=== PATIENT | female | born 1955 | race Caucasian/White ===

== ENCOUNTER 2021-08-01 20:09 | Emergency (ER) | payer MEDICARE, OTHER, SELFPAY ==
--- NOTE | ~2021-08-01 | CT_ITS ---
EXAMINATION: CT abdomen pelvis w con DATE: 08/01/2021 22:35 INDICATION: Abdominal pain. TECHNIQUE: Computed tomography (CT) of the abdomen and pelvis was performed with 100 mL Omnipaque 350 intravenous contrast. Automated exposure control and iterative reconstruction technique were employe d. The dose-length product was 635.02 mGy-cm. COMPARISON: None. FINDINGS: The visualized portions of the lung bases demonstrate mild atelectasis. No pleural effusion . The heart size is normal. No pericardial effusion. There is a small sliding hiatal hernia. The live r and spleen are normal. There are changes of cholecystectomy. The pancreas, adrenal glands, and kidn eys are normal. There is diverticulosis of the colon without evidence of diverticulitis. The appendix is normal. There are no dilated loops of bowel. There are no pathologically enlarged lymph nodes. Th ere is no free intraperitoneal fluid. There is moderate lumbar spondylosis and mild thoracic spondylo sis. IMPRESSION: 1. Small sliding hiatal hernia. Reviewed, dictated and finalized at location A.
[2021-08-01 20:45] VITALS: BP 145/71; PULSE 72; RESP 22; TEMP 36.6; O2SAT 100
[2021-08-01 21:39] LABS: Basophils Percent Auto 0.4 % (0.2-1.2); Eosinophils Absolute Auto 0.3 K/mm3 (0-0.3); Eosinophils Percent Auto 2.6 % (0-4.4); Hematocrit 38.2 % (37.0-47.0); Hemoglobin 13.3 g/dL (12.0-15.0); Immature Granulocyte Absolute 0.03 K/mm3 (0.00-0.031); Immature Granulocyte Percent A 0.3 % (0-0.5); Lymphocytes Absolute Auto 2.68 K/mm3 (0.9-3.2); Lymphocytes Percent Auto 25.9 % (18.3-44.2); Mean Corpuscular HGB Conc 34.8 g/dl (32-36); Mean Corpuscular Hemoglobin 31.7 pg (26-34); Monocytes Absolute Auto 0.8 K/mm3 (0.1-0.6); Monocytes Percent Auto 8.1 % (2.6-8.5); Neutrophils Absolute Auto 6.5 K/mm3 (1.3-6.7); Neutrophils Percent Auto 62.7 % (45.5-73.1); Platelet Count Result 217 k/mm3 (150-375); Red Cell Distribution Width 12.4 % (11.5-14.5); White Blood Count 10.4 K/mm3 (4.5-10.0)
[2021-08-01] MEDS: ONDANSETRON INJ 4 MG/2 ML VIAL IV PUSH (21:43)
[2021-08-01] MEDS: MORPHINE SULFATE (*CRX) 4 MG/ML INJ IV PUSH (21:44)
[2021-08-01] MEDS: SODIUM CHLORIDE 0.9% IV 1,000 ML 999 ML IV CONT (21:44)
[2021-08-01 21:46] VITALS: BP 118/51; PULSE 70; RESP 20; O2SAT 100
[2021-08-01 21:48] LABS: Alanine Aminotransferase 21 U/L (4-35); Albumin Level 4.4 g/dL (3.5-5.1); Alkaline Phosphatase 55 U/L (38-126); Anion Gap 7 mmol/L (8-16); Aspartate Amino Transferase 30 U/L (14-36); Bilirubin,Total 0.4 mg/dL (0.2-1.3); Blood Urea Nitrogen 15 mg/dL (7-17); Calcium 9.6 mg/dL (8.4-10.2); Carbon Dioxide 28 mmol/L (22-30); Chloride 99 mmol/L (98-107); Estimated CRCL calculation 53 ml/min; Estimated Glomerular Filt Rate > 60; Glucose 110 mg/dL (65-110); Lipase 53 U/L (23-300); Potassium 3.4 mmol/L (3.4-5.0); Sodium 134 mmol/L (137-145)
[2021-08-01 23:23] VITALS: BP 114/54; PULSE 70; RESP 18; O2SAT 99
--- NOTE | 2021-08-02 00:08 | ED.GENADULT ---
HPI - General Adult General Chief complaint: Back Pain/Injury Stated complaint: back pain Time Seen by Provider: 08/01/21 21:10 Source: RN notes reviewed History of Present Illness HPI narrative: Patient presents emergency department from home for pain in the left hip. Patient states pain is located in the left buttocks posterior hip region and radiates into the lower back and into the left lower abdomen pain is described as aching and burning in nature. Patient states she has had the pain intermittently over the past month but became worse over the past several days she denies any direct trauma or injury to the back or abdomen she denies any fevers or chills nausea, vomiting, diarrhea dysuria, bladder incontinence or any other symptoms she denies any pain radiating down the leg or any numbness or tingling of the extremities Related Data Allergies Allergy/AdvReac Type Severity Reaction Status Date / Time No Known Allergies Allergy Mild Unverified 12/08/03 09:39 Review of Systems Review of Systems: Gen.: Denies fevers or chills ENT: Denies congestion Respiratory: Denies shortness of breath or cough CV: Denies chest pain or palpitations GI: Reports left lower abdominal pain denies nausea vomiting or diarrhea denies burning, urgency, frequency or hematuria denies bladder incontinence Musculoskeletal: See HPI Neuro: Denies numbness, tingling, weakness or focal weakness Skin: Denies rash Except as documented, all other systems reviewed and negative [facility] Past Medical History Medical History (Updated 08/02/21 @ 00:38 by Narinder Kent DO) Hypertension Social History Social History (Updated 08/02/21 @ 00:10 by Narinder Kent DO) Smoking status: Never smoker Exam Narrative: APPEARANCE: No acute distress, nontoxic, resting in bed HEENT: Normocephalic, atraumatic, OMM RESPIRATORY: No respiratory distress, clear to auscultation bilaterally with no rhonchi wheezing or rales CARDIOVASCULAR: RRR s murmur ABDOMINAL: Soft nondistended tender palpation left lower quadrant no tenderness left upper quadrant, right lower quadrant right upper quadrant no rebound or guarding Back: No midline thoracic lumbar tenderness palpation 10 palpation over left piriformis region MUSCULOSKELETAl: Moves all extremities. No clubbing, cyanosis or edema. No tenderness of the left lateral or anterior hip pain left hip with flexion of the hip greater than 45 degrees no tenderness of the left knee or ankle dorsalis pedis pulse 2+ neurovascular intact NEURO: Awake and alert. Following commands, speech normal, no focal deficits SKIN:: Warm, dry. Normal Color PSYCHIATRIC: Normal affect/mood Course Course Emergency Course: Patient states pain is improved at this time Discussed with patient results of workup and diagnosis. Discussed need for follow-up with primary care, proper use of medication, and reasons to return to the emergency department. Patient understands and agrees to current treatment plan Vital Signs Vital signs: Vital Signs Temperature 97.8 F 08/01/21 20:45 Pulse Rate 72 08/01/21 20:45 Respiratory Rate 22 H 08/01/21 20:45 Blood Pressure 145/71 H 08/01/21 20:45 Pulse Oximetry 100 08/01/21 20:45 Temperature 97.8 F 08/01/21 20:45 Pulse Rate 66 08/02/21 00:13 Respiratory Rate 20 08/02/21 00:13 Blood Pressure 132/67 08/02/21 00:13 Pulse Oximetry 99 08/02/21 00:13 Medical Decision Making [facility] Narrative Medical decision making narrative: Patient?s pain is positional and localized to back without signs of cord compression or cauda equina. Normal nuerologic exams. No fever noted and no significant risk factors for osteomyelitis or spinal epidural abscess. No symptoms or signs to suggest pain is referred from abdominal or source. There are no pulsatile masses to exam. Patient ambulates with a steady gait and is felt to be up reasonable candidate for continued outpatient management Vital Signs Vital Signs
[2021-08-02 00:13] VITALS: BP 132/67; PULSE 66; RESP 20; O2SAT 99
[2021-08-02] MEDS: KETOROLAC 30 MG/ML VIAL (*BKC) IV PUSH (00:14)
[2021-08-02 00:30] LABS: Add Urine Microscopic? NO; Appearance Urine Clear (Clear); Bilirubin Urine Negative (Negative); Blood Urine Negative (Negative); Color Urine Colorless (Yellow); Glucose Urine UA Negative (Negative); Ketones Urine Negative (Negative); Leukocyte Esterase Ur Negative LEU/UL (Negative); Nitrate Urine Negative (Negative); Protein Urine Negative (Negative); Urobilinogen Urine Negative mg/dL (<2.0)
== END 2021-08-02 00:55 | disposition home or self-care (01) ==
PROVIDERS: Emergency Provider Emergency Medicine; PCP Family Medicine
DX: M54.30 Sciatica, unspecified side (principal); I10 Essential (primary) hypertension
CPT/HCPCS: 36415; 74177; 80053; 81003; 83690; 85025; 96361; 96374; 96375; 99284; J1885; J2270; J2405; J7030; Q9967

== ENCOUNTER 2021-08-07 10:21 | Outpatient (CLI) | payer MEDICARE, OTHER, SELFPAY ==
--- NOTE | ~2021-08-07 | MR_ITS ---
EXAMINATION: MR lumbar spine wo con DATE: 08/07/2021 11:01 INDICATION: Other spondylosis with radiculopathy. TECHNIQUE: Magnetic resonance imaging (MRI) of the lumbar spine was performed without intravenous con trast. Sequences included sagittal T2-weighted FSE, sagittal T2-weighted FS FSE, sagittal T1-weighted FSE, and axial T2-weighted FSE. COMPARISON: None FINDINGS: There is 6 degrees levocurvature of lumbar spine. Vertebral body heights are normal. There is moderately decreased disc height at L2-L3 and L3-L4 and mildly decreased disc height at L4-L5. The distal spinal cord signal intensity is normal. The conus medullaris is at L1-L2. The following disc levels are specifically discussed: L1-L2: The disc does not extend beyond the endplate margin. There is mild left facet joint osteoarthr itis. There is mild left neural foraminal stenosis. There is no central canal stenosis. L2-L3: The disc is bulging and has an annular fissure. There is mild bilateral facet joint osteoarthr itis. There is mild bilateral neural foraminal stenosis. There is mild central canal stenosis. L3-L4: The disc is bulging. There is mild bilateral facet joint osteoarthritis. There is mild bilater al neural foraminal stenosis. There is mild central canal stenosis. L4-L5: The disc is bulging and has an annular fissure. There is moderate bilateral facet joint osteoa rthritis. There is mild bilateral neural foraminal stenosis. There is mild central canal stenosis. L5-S1: The disc does not extend beyond the endplate margin. There is severe bilateral facet joint ost eoarthritis. There is mild bilateral neural foraminal stenosis. There is no central canal stenosis. IMPRESSION: 1. Moderate lumbar spondylosis. Reviewed, dictated and finalized at location A.
== END 2021-08-07 10:22 | disposition home or self-care (01) ==
PROVIDERS: PCP Family Medicine; Visit Provider Family Medicine
DX: M47.26 Other spondylosis with radiculopathy, lumbar region (principal)
CPT/HCPCS: 72148

== ENCOUNTER 2021-12-08 08:16 | Outpatient (CLI) | payer MEDICARE, OTHER, SELFPAY ==
--- NOTE | ~2021-12-08 | MM_ITS ---
EXAMINATION: MM screening toni BI w latonya HISTORY: Screening TECHNIQUE: Craniocaudal and mediolateral oblique 3-D tomosynthesis images were obtained and synthetic 2-D images were generated. CAD analysis was submitted and interpreted. COMPARISON: 10/18/2016 BREAST PARENCHYMAL COMPOSITION: There are scattered areas of fibroglandular density. FINDINGS: There is no evidence of suspicious mass, calcification, or architectural distortion to sugg est malignancy in either breast. There has been no suspicious interval change. IMPRESSION: 1. No mammographic evidence of malignancy. 2. Recommend routine screening mammography in one year. BI-RADS Category 1: Negative Reviewed, dictated and finalized at location A. [employer]
== END 2021-12-08 08:17 | disposition home or self-care (01) ==
PROVIDERS: PCP Family Medicine; Visit Provider Nurse Practitioner Obstetrics & Gynecology
DX: Z12.31 Encounter for screening mammogram for malignant neoplasm of breast (principal)
CPT/HCPCS: 77063; 77067

== ENCOUNTER 2023-05-21 07:55 | Outpatient (CLI) | payer MEDICARE, OTHER, SELFPAY ==
[2023-05-21 08:44] LABS: Anion Gap 3 mmol/L (8-16); Blood Urea Nitrogen 18 mg/dL (7-17); Carbon Dioxide 32 mmol/L (22-30); Chloride 102 mmol/L (98-107); Estimated Glomerular Filt Rate 55; Glucose 113 mg/dL (65-110); Potassium 4.1 mmol/L (3.4-5.0); Sodium 137 mmol/L (137-145)
== END 2023-05-21 07:56 | disposition home or self-care (01) ==
LOC: ANHSURGERY 08:00
PROVIDERS: Anesthesiology; PCP Family Medicine; Visit Provider Obstetrics & Gynecology
DX: N95.0 Postmenopausal bleeding (principal); Z01.818 Encounter for other preprocedural examination
CPT/HCPCS: 36415; 80048

== ENCOUNTER 2023-05-23 00:28 | Day surgery (SDC) | payer MEDICARE, OTHER, SELFPAY ==
[2023-05-17 12:27] VITALS: BMI 34.0
--- NOTE | 2023-05-17 12:38 | PC.NURSE ---
PRE-OP INSTRUCTIONS, PLEASE READ CAREFULLY Report to the Outpatient Waiting Room, entrance under the green pavilion located off [facility], at time _0630_ on date _05/23/23_. Planned Procedure Time: _0830_. MAY HAVE 2 VISITORS Time changes happen often and if your time is changed the preop area will call you the afternoon before. - You and your visitor will be asked to self-screen and do not enter if you have any COVID symptoms. - A mask is optional within the hospital at this time. Patients may have clear liquids (water, carbonated beverages, clear teas, apple juice) until 3 hours prior to surgery with a maximum of 20 ounces. - No food from midnight until time of surgery Take the following medications with a SIP of water the morning of surgery: _METOPROLOL_ DO NOT STOP ANY OF YOUR OTHER PRESCRIPTION MEDICATIONS PRIOR TO SURGERY ?EXCEPT THE FOLLOWING Medications to discontinue per ANESTHESIA - _FISH OIL, TURMERIC ROOT 3 DAYS PRIOR TO SURGERY, Date to take last dose 05/19/23_ Please no make-up, nail thai, hairspray, perfume, deodorant, or body powder the day of surgery. No jewelry (including any body piercings) or valuables the day of surgery, leave them at home. Please take a shower or bath the night before, or the morning of, surgery with an antibacterial soap. Wear comfortable, loose fitting clothing. - Jewelry must be removed prior to entering the operating room. Rings and piercings that are not removed may be cut off. - The hospital will not accept responsibility for valuables. - Please leave all valuables, including medications, at home the day of surgery. If you are going home after surgery, a licensed warehouse associate driver must drive you home. - NO public transportation without another adult if you receive anesthesia. - We recommend that an adult stay with you for 24 hours following discharge. - We also recommend that you do not drive, make important decision, drink alcoholic beverages, or take any drugs that were not prescribed by your health care provider for at least 24 hours after your discharge time. Follow any additional instructions given to you from your surgeon. If you or anyone in your household have experienced Covid symptoms in the past week, please notify your surgeon or the nurse liaison at the phone number below for possible testing. Telephone instructions given to _PATIENT_and asked if any additional questions and then verbalized understanding. Patient advised to call surgeon office or pre surgery nurse liaison [phone] if any additional questions.
--- NOTE | 2023-05-22 14:11 | P.PNAN_ITS ---
Anes - Initial Pre Proc Eval Procedure: Operation Date: 05/23/23 08:30 Proposed Procedures p Hysteroscopy Dilation and Curettage - Yury Silvestre MD Date/Time: 05/22/23 14:11 Surgeon: Yury Silvestre MD Pre Op Diagnosis: post menopausal bleeding Patient Data Age: 67 Gender: F Height: 1.55 m Weight: 81.81 kg Allergies Allergy/AdvReac Type Severity Reaction Status Date / Time No Known Allergies Allergy Mild Verified 05/23/23 06:34 Home Medications Medication Instructions Recorded Confirmed Type atorvastatin 10 mg tablet 10 mg PO DAILY #90 tabs 03/23/23 05/17/23 Rx gabapentin 300 mg capsule 300 mg PO QHS #90 caps 03/23/23 05/17/23 Rx hydrochlorothiazide 25 mg tablet 25 mg PO DAILY #90 tabs 03/23/23 05/17/23 Rx metoprolol succinate 50 mg 50 mg PO DAILY #90 tabs 03/23/23 05/17/23 Rx tablet,extended release 24 hr omega 1-tkd-axt-fish oil 100 2 cap PO DAILY 03/23/23 05/17/23 History mg-160 mg-1,000 mg capsule (Fish Oil) turmeric root extract 500 mg 500 mg PO DAILY 03/23/23 05/17/23 History capsule Patient hx anesthesia problems: none Family hx anesthesia problems: none Results Review: All pre-operative results and documents have been reviewed as part of the pre- operative evaluation. [facility] Past Medical History Medical History (Updated 03/23/23 @ 14:58 by Duarte Medina MD) Hypertension Insomnia, unspecified Pure hypercholesterolemia, unspecified Surgical History Surgical History (Updated 05/22/23 @ 14:11 by Willi Doss DO) History of tonsillectomy Social History Social History (Updated 03/23/23 @ 10:09 by CARLITOS Morales) Smoking status: Never smoker Second hand tobacco smoke exposure: No Alcohol intake: never Substance use: never Substance use type: does not use Lack of Transportation: No Lack of Food: Never True Current Housing: I Have Housing Concerned About Future Housing: No Difficulty Paying Gas/Electric Bills: No Difficulty Paying for Meds: No Currently Unemployed: No Education: Associate Degree Difficulty w/ Childcare or Family Care: No Living arrangements: with family Spiritual care concerns: No Anes - Eval Final PreProcedure Day of Procedure 05/22/23 14:11 Patient weight: obese Heart: regular rate and rhythm Lungs: clear to auscultation Airway: Mallampati scale class II Neurological: alert and oriented Last oral intake: >/= 8 hours ASA classification: III Emergent: no Anesthetic plan: proceed Anesthesia type and monitoring: general GIVS and standard monitoring Results Review: All pre-operative results and documents have been reviewed as part of the pre- operative evaluation. Informed Consent: The patient's anesthetic plan and its attendant risks and benefits were discussed with the patient/family/POA. Questions were solicited and answers provided to the satisfaction of the patient/family/POA.
[2023-05-23] MEDS: ACETAMINOPHEN 500 MG TABLET 1000 MG PO (06:53)
[2023-05-23] MEDS: LACTATED RINGERS 1,000 ML 30 ML IV CONT (07:06)
[2023-05-23 07:10] VITALS: BP 121/62; PULSE 50; RESP 16; TEMP 36.2; O2SAT 99
--- NOTE | 2023-05-23 07:19 | WPDHPUPDATE1 ---
History and Physical Update Update Date/Time: 05/23/23 07:19 History and Physical has been reviewed, including an updated exam of the patient. There are NO changes in the patient's condition. Risks, benefits, and alternatives have been discussed and questions answered. Patient agrees to proceed with procedure.
--- NOTE | 2023-05-23 08:48 | W.PM.PROC2 ---
Procedure Note - Detailed Date of Procedure 05/23/23 Pre-op Diagnosis post menopausal bleeding Post-op Diagnosis Same Procedure Performed Hysteroscopy D&C Surgeon Yury Silvestre MD Anesthesia MAC Indications abnormal uterine bleeding Findings Normal vulva, vagina, cervix. Endometrial polyp, possibly 3 cm in length, otherwise normal endometrium Description of Procedure the patient was taken the operating room. She was prepped and draped in the dorsal lithotomy position after induction of mac anesthesia. A speculum was placed in the vagina. The cervix was grasped with a tenaculum. The cervix was dilated about 1 cm. The hysteroscope was inserted. The intrauterine cavity and endocervix were evaluated. Hysteroscope was withdrawn. A medium-size curette was used to curettage all the surfaces were within the endometrial cavity. the sample was collected on Telfa and sent to pathology. The hysteroscope was reinserted and the above findings were noted. Patient tolerated the procedure well. The speculum and tenaculum were removed. She was taken recovery room in stable condition. Sponge lap and needle counts were correct x2. Estimated Blood Loss 40 Drains No Packing No Pathology Yes Complications No immediate complications Condition Stable Disposition PACU
[2023-05-23 08:50] VITALS: BP 125/49; PULSE 62; RESP 12; O2SAT 95
[2023-05-23 09:15] VITALS: BP 112/94; PULSE 101; RESP 20
[2023-05-23 09:30] VITALS: BP 126/68; PULSE 49; RESP 16
[2023-05-23 09:45] VITALS: BP 141/63; PULSE 48; RESP 16
[2023-05-23 09:49] LABS: Glucose Point of Care 93 mg/dl (65-105)
--- NOTE | 2023-05-23 09:55 | SUR.PHASEII ---
0855 pt lying on stretcher is drowsy but responsive, constantly moving legs. 0900 pt has the urge to void, taken to bathroom on stretcher, bin and i walked her to toilet, patient did ok with assistance. Bin stayed with her in bathroom, patient unable to void. patient taken back to room in wheelchair. 0910 spouse called me into room due to patient having constant movement of arms/legs, patient answering questions, vital sign s stable on room air. i had sabrina call dr wadsworth to come to room. pt had strong machine staker, symmetrical smile, tongue symmetrical. patient states she has this off feeling, dizziness. fluids hooked back up, dr wadsworth is going to check her meds for possible reaction with propofol. 0930 pt resting easier, movements have slowed. [address] wadsworth if he wants a blood glucose, he says yes. [id number]. pt still feels off 0950 dr wadsworth and amrit(paula) at bedside disussing with patient/spouse about what is possibly causing this clomi tonic movements of arms/legs 0955 dr wadsworth is okay with patient to be discharged, he believes the propofol has worked its course and patient shouldn't have any other problems
[2023-05-23 10:15] VITALS: BP 147/65; PULSE 51; RESP 16
== END 2023-05-23 10:45 | disposition home or self-care (01) ==
PROVIDERS: PCP Family Medicine; Visit Provider Obstetrics & Gynecology
PROC: 0U5B8ZZ Destruction of Endometrium, Via Natural or Artificial Opening Endoscopic (ICD-10-PCS; CPT 58563; principal; 2023-05-23 08:30)
DX: N95.0 Postmenopausal bleeding (principal); N84.0 Polyp of corpus uteri; I10 Essential (primary) hypertension; E78.00 Pure hypercholesterolemia, unspecified; E66.9 Obesity, unspecified; Z68.33 Body mass index [BMI] 33.0-33.9, adult
CPT/HCPCS: 58558; 82948; 88305; A9270; J2704; J7120

== ENCOUNTER 2024-03-28 06:50 | Outpatient (CLI) | payer MEDICARE, OTHER, SELFPAY ==
[2024-03-28 07:37] LABS: Alanine Aminotransferase 16 U/L (6-35); Albumin Level 4.1 g/dL (3.5-5.1); Alkaline Phosphatase 48 U/L (38-126); Anion Gap 3 mmol/L (4-12); Aspartate Amino Transferase 23 U/L (14-36); Bilirubin,Total 0.7 mg/dL (0.2-1.3); Blood Urea Nitrogen 21 mg/dL (7-17); Calcium 9.4 mg/dL (8.4-10.2); Carbon Dioxide 29 mmol/L (22-30); Chloride 105 mmol/L (98-107); Cholesterol 148 mg/dL (0-200); Estimated Glomerular Filt Rate > 60; Glucose 108 mg/dL (65-110); HDL Direct 56 mg/dL; Potassium 3.7 mmol/L (3.4-5.0); Sodium 137 mmol/L (137-145); Triglycerides 114 mg/dL (<150)
[2024-03-28 07:54] LABS: LDL Cholesterol Direct 71 mg/dL
== END 2024-03-28 06:51 | disposition home or self-care (01) ==
PROVIDERS: PCP Family Medicine; Visit Provider Family Medicine
DX: E78.00 Pure hypercholesterolemia, unspecified (principal); I10 Essential (primary) hypertension
CPT/HCPCS: 36415; 80053; 80061

== ENCOUNTER 2024-07-11 07:34 | Emergency (ER) | payer MEDICARE, OTHER, SELFPAY ==
[2024-07-11] VITALS (12 sets, daily range): BP systolic 111–153; BP diastolic 54–73; PULSE 56–77; RESP 16–20; TEMP 36.5; O2SAT 94–100
--- NOTE | 2024-07-11 09:53 | ED.BACK ---
HPI - Back Pain/Injury General Chief Complaint: Back Pain/Injury Stated Complaint: back pain Time Seen by Provider: 07/11/24 08:27 History of Present Illness HPI Narrative: This is a 68-year-old female with a past medical history significant for sciatica who presents to the emergency department with left lower back, posterior thigh pain. She states it feels exactly like last time she had sciatica 3 years prior. She previously underwent MRI imaging and physical therapy outpatient which helped her sciatic pain. She was doing heavy boxes at work last week and noticed significant pain shoot down the left leg she described as a burning sensation consistent with her sciatica. Pain came and went but over last few days got acutely worse. She states that is now impairing her ability walk as she is so much pain. No recent new medications aside from being given Flexeril by her primary care provider which did not alleviate the symptoms. No urinary incontinence or fecal incontinence, no saddle anesthesias, no trauma or injuries, car accidents or falls. No fever, chills or any other complaints. She was otherwise in her normal state of health. Denies any chest pain, abdominal pain, upper back pain, difficulty urinating, burning with urination. Related Data Home Medications Medication Instructions Recorded Confirmed omega 8-xbx-zka-fish oil 100 2 cap PO DAILY 03/23/23 04/01/24 mg-160 mg-1,000 mg capsule (Fish Oil) turmeric root extract 500 mg 500 mg PO DAILY 03/23/23 04/01/24 capsule Allergies Allergy/AdvReac Type Severity Reaction Status Date / Time No Known Allergies Allergy Mild Verified 07/11/24 07:47 Review of Systems Review of Systems: As reviewed above in HPI [facility] Past Medical History Medical History Abnormal glucose Hypertension Insomnia, unspecified Pure hypercholesterolemia, unspecified Surgical History Surgical History History of tonsillectomy Social History Social History Smoking status: Never smoker Second hand tobacco smoke exposure: No Alcohol intake: never Drinks per week: 0 Substance use: never Substance use type: does not use Lack of Transportation: No Lack of Food: Never True Current Housing: I Have Housing Concerned About Future Housing: No Difficulty Paying Gas/Electric Bills: No Difficulty Paying for Meds: No Currently Unemployed: No Education: Associate Degree Difficulty w/ Childcare or Family Care: No Living arrangements: with family Spiritual care concerns: No Exam Narrative: GENERAL: Patient appears acutely in pain but not in any distress and able to answer questions appropriately HEAD: [Normocephalic, atraumatic.] EYES: [PERRLA and EOMI.] ENT: Nares clear, no rhinorrhea or epistaxis. Mucous membranes moist. NECK: Supple. CHEST: [Clear to auscultation. No respiratory distress.] HEART: [Regular rate and rhythm]. No murmur heard. [Normal peripheral pulses.] ABDOMEN: [Soft, nondistended], [nontender], [No rigidity or guarding] EXTREMITIES: Normal range of motion. [No edema.] Significant tenderness in the posterior left buttock radiating down her left thigh. Left paraspinal muscle tenderness without any involvement of the lumbar or thoracic midline. No step-offs or deformities. Full EHL and FHL strength 5/5 able to flex and extend at the knee and hip albeit with some pain with left hip flexion. SKIN: Warm, dry, no rash. NEURO: [No focal deficits]. Alert and oriented [x3.] No saddle anesthesias, full strength and sensation throughout both lower extremities, both upper extremities. PSYCH: [Normal mood and affect.] Course Vital Signs Vital signs: Vital Signs Temperature 36.5 C 07/11/24 07:44 Pulse Rate 56 L 07/11/24 07:44 Respiratory Rate 2
[2024-07-11] MEDS: ONDANSETRON INJ 4 MG/2 ML VIAL IV PUSH (10:08)
[2024-07-11] MEDS: LACTATED RINGERS 1,000 ML 999 ML IV CONT (10:09)
[2024-07-11 10:12] LABS: Basophils Percent Auto 0.2 % (0.2-1.2); Hematocrit 43.2 % (37.0-47.0); Hemoglobin 15.1 g/dL (12.0-15.0); Immature Granulocyte Absolute 0.02 K/mm3 (0.00-0.031); Immature Granulocyte Percent A 0.2 % (0-0.5); Lymphocytes Absolute Auto 1.36 K/mm3 (0.9-3.2); Mean Corpuscular Hemoglobin 31.6 pg (26-34); Mean Corpuscular Volume 90.4 fl (80-100); Mean Platelet Volume 9.3 fl (7.4-10.4); Monocytes Absolute Auto 0.4 K/mm3 (0.1-0.6); Monocytes Percent Auto 4.5 % (2.6-8.5); Neutrophils Absolute Auto 6.7 K/mm3 (1.3-6.7); Neutrophils Percent Auto 79.1 % (45.5-73.1); Platelet Count Result 244 k/mm3 (150-375); Red Blood Count 4.78 M/mm3 (4.2-5.4); Red Cell Distribution Width 12.6 % (11.5-14.5); White Blood Count 8.5 K/mm3 (4.5-10.0)
[2024-07-11] MEDS: HYDROmorphone HCL INJ (*CRX) 1 MG/ML SYR IV PUSH (10:13)
[2024-07-11] MEDS: dexAMETHasone SOD PHOS INJ 10 MG/ML 1 ML VIAL IV PUSH (10:13)
[2024-07-11] MEDS: LIDOCAINE 5% PATCH 1 PATCH TRANSDERM (10:15)
[2024-07-11 10:22] LABS: Anion Gap 11 mmol/L (4-12); Blood Urea Nitrogen 13 mg/dL (7-17); Calcium 9.8 mg/dL (8.4-10.2); Carbon Dioxide 23 mmol/L (22-30); Chloride 102 mmol/L (98-107); Estimated CRCL calculation 54 ml/min; Estimated Glomerular Filt Rate > 60; Glucose 119 mg/dL (65-110); Potassium 3.5 mmol/L (3.4-5.0); Sodium 136 mmol/L (137-145)
== END 2024-07-11 13:05 | disposition home or self-care (01) ==
PROVIDERS: Emergency Provider Student in an Organized Health Care Education/Training Program; PCP Family Medicine
DX: M54.42 Lumbago with sciatica, left side (principal); I10 Essential (primary) hypertension; E78.00 Pure hypercholesterolemia, unspecified
CPT/HCPCS: 36415; 80048; 85025; 96361; 96374; 96375; 99284; A9270; J1100; J1170; J2405; J7120

== ENCOUNTER 2024-07-12 20:51 | Emergency (ER) | payer MEDICARE, OTHER, SELFPAY ==
[2024-07-12 20:52] VITALS: BP 147/75; PULSE 90; RESP 20; TEMP 36.6; O2SAT 100
[2024-07-12] MEDS: HYDROmorphone HCL INJ (*CRX) 1 MG/ML SYR IV PUSH (23:25)
[2024-07-12] MEDS: KETOROLAC 15 MG/ML VIAL (*BKC) IV PUSH (23:26)
[2024-07-12] MEDS: dexAMETHasone SOD PHOS INJ 10 MG/ML 1 ML VIAL IV PUSH (23:26)
[2024-07-12 23:49] VITALS: O2SAT 100; O2SAT 77
--- NOTE | 2024-07-13 01:03 | ED.GENADULT ---
HPI - General Adult General Chief complaint: Back Pain/Injury Stated complaint: back pain Time Seen by Provider: 07/12/24 22:56 History of Present Illness HPI narrative: Patient is 68-year-old female who presents emergency department with chief complaint of sciatica. The patient reports that she was seen in the ER given ibuprofen and muscle relaxer and Lidoderm patches. The patient states she has pain that radiates down her left leg patient reports that she has had no bowel or bladder dysfunction denies numbness or tingling denies foot Related Data Home Medications Medication Instructions Recorded Confirmed omega 6-zka-qwp-fish oil 100 2 cap PO DAILY 03/23/23 04/01/24 mg-160 mg-1,000 mg capsule (Fish Oil) turmeric root extract 500 mg 500 mg PO DAILY 03/23/23 04/01/24 capsule Allergies Allergy/AdvReac Type Severity Reaction Status Date / Time No Known Allergies Allergy Mild Verified 07/11/24 07:47 Review of Systems Review of Systems: A 10 system review of systems was completed on the patient and is negative except for what is stated in the HPI. Nursing and ancillary documentation was reviewed. [facility] Past Medical History Medical History Abnormal glucose Hypertension Insomnia, unspecified Pure hypercholesterolemia, unspecified Surgical History Surgical History History of tonsillectomy Social History Social History Smoking status: Never smoker Second hand tobacco smoke exposure: No Alcohol intake: never Drinks per week: 0 Substance use: never Substance use type: does not use Lack of Transportation: No Lack of Food: Never True Current Housing: I Have Housing Concerned About Future Housing: No Difficulty Paying Gas/Electric Bills: No Difficulty Paying for Meds: No Currently Unemployed: No Education: Associate Degree Difficulty w/ Childcare or Family Care: No Living arrangements: with family Spiritual care concerns: No Exam Narrative: GENERAL: Well-appearing, well-nourished, and in moderate acute pain distress. HEAD: Normocephalic, atraumatic. EYES: PERRLA and EOMI. ENT: Nares clear, no rhinorrhea or epistaxis. Mucous membranes moist. NECK: Supple. CHEST: Clear to auscultation. No respiratory distress. HEART: Regular rate and rhythm. No murmur heard. Normal peripheral pulses. ABDOMEN: Soft, nontender, nondistended, normal active bowel sounds. EXTREMITIES: Normal range of motion. No edema. Tenderness along left SI joint the left gluteal area SKIN: Warm, dry, no rash. NEURO: No focal deficits. Alert and oriented x3. PSYCH: Normal mood and affect. Course Vital Signs Vital signs: Vital Signs Temperature 36.6 C 07/12/24 20:52 Pulse Rate 90 07/12/24 20:52 Respiratory Rate 20 07/12/24 20:52 Blood Pressure 147/75 H 07/12/24 20:52 Pulse Oximetry 100 07/12/24 20:52 Oxygen Delivery Room Air 07/12/24 20:52 Temperature 36.6 C 07/12/24 20:52 Pulse Rate 76 07/13/24 02:54 Respiratory Rate 18 07/13/24 02:54 Blood Pressure 125/56 L 07/13/24 02:54 Pulse Oximetry 99 07/13/24 02:54 Oxygen Delivery Nasal Cannula 07/12/24 23:49 Oxygen Flow Rate 2 07/12/24 23:49 Medical Decision Making MDM Narrative Medical decision making narrative: Differential diagnosis includes sciatica, low back pain. Patient shows no focal neurological deficits or signs of acute cauda equina syndrome or infectious process. Patient was given pain control in the emergency department and observed in the emergency department. The patient will be discharged home with additional pain medication should follow-up with her primary care provider for possible physical therapy additional treatment Vital Signs Vital Signs: Vital Signs Temperature 36.6 C
[2024-07-13 02:54] VITALS: BP 125/56; PULSE 76; RESP 18; O2SAT 99
[2024-07-13 03:38] VITALS: BP 138/72; PULSE 61; RESP 16; O2SAT 98
== END 2024-07-13 04:03 | disposition home or self-care (01) ==
PROVIDERS: Emergency Provider Emergency Medicine; PCP Family Medicine
DX: M54.42 Lumbago with sciatica, left side (principal); I10 Essential (primary) hypertension; E78.00 Pure hypercholesterolemia, unspecified; Z79.899 Other long term (current) drug therapy
CPT/HCPCS: 96374; 96375; 99284; J1100; J1170; J1885

== ENCOUNTER 2024-07-15 10:02 | Outpatient (CLI) | payer MEDICARE, OTHER, SELFPAY ==
--- NOTE | ~2024-07-15 | XR_ITS ---
3 VIEWS LUMBAR SPINE Ordering provider: Duarte Medina MD History: . M54.30 - Sciatica, unspecified side . Comparison: None. FINDINGS: VERTEBRAL BODIES: No visible fracture or subluxation. DISK SPACES: Narrowing of the disc L2-L3 and L3-L4. SOFT TISSUES: Periarticular calcification. IMPRESSION: No acute osseous abnormality lumbar spine. Degenerative disc disease at the level of L2-L3 and L3-L4. Reviewed, dictated and finalized at location A.
== END 2024-07-15 10:03 | disposition home or self-care (01) ==
PROVIDERS: PCP Family Medicine; Visit Provider Family Medicine
DX: M51.36 Other intervertebral disc degeneration, lumbar region (principal); M54.30 Sciatica, unspecified side
CPT/HCPCS: 72110

== ENCOUNTER 2024-10-07 11:54 | Outpatient (CLI) | payer MEDICARE, OTHER, SELFPAY ==
--- NOTE | ~2024-10-07 | XR_ITS ---
Thoracic spine: Clinical Indication: Back pain AP and lateral views were performed. No fracture is seen. There is normal alignment of the vertebrae. There is mild to moderate degenerat darlyn disc change throughout the mid thoracic spine in particular. Paravertebral soft tissues appear no rmal. Impression: Degenerative disc change, as above. Reviewed, dictated and finalized at location . 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
== END 2024-10-07 11:55 | disposition home or self-care (01) ==
LOC: MICIMG 11:56
PROVIDERS: PCP Family Medicine; Visit Provider Family Medicine
DX: M51.34 Other intervertebral disc degeneration, thoracic region (principal)
CPT/HCPCS: 72072

== ENCOUNTER 2025-07-15 13:07 | Outpatient (CLI) | payer MEDICARE, OTHER, SELFPAY ==
--- NOTE | ~2025-07-15 | MM_ITS ---
EXAMINATION: MM screening toni BI w latonya HISTORY: Screening TECHNIQUE: Craniocaudal and mediolateral oblique 3-D tomosynthesis images were obtained and synthetic 2-D images were generated. CAD analysis was submitted and interpreted. COMPARISON: 12/08/2021 BREAST PARENCHYMAL COMPOSITION: There are scattered areas of fibroglandular density. FINDINGS: There is no evidence of suspicious mass, calcification, or architectural distortion to suggest malignancy. There has been no suspicious interval change. IMPRESSION: 1. No mammographic evidence of malignancy. Recommend routine screening mammography in one year. BI-RADS Category 2: Benign finding(s) Reviewed, dictated and finalized at location Q. IMPRESSION: 1. No mammographic evidence of malignancy. Recommend routine screening mammogra phy in one year. BI-RADS Category 2: Benign finding(s)
--- OUTSIDE RECORDS SUMMARY | 2025-07-15 13:13 | XMS_ITS | Clinical Summary ---
Author Organization [facility] Care Team Providers Care Line Up Examiner Name Role Phone Unavailable Primary Care Provider Unavailabl e Social History Tobacco Use Types Packs/Day Years Used Date Smoking Tobacco: Never Assessed Comments Unknown Sex and Gender Information Value Date Recorded Sex Assigned at Not on file Legal Sex Female 8:14 AM [employer] Gender Identity Not on file Sexual Orientation Not on file Plan of Treatment Health Maintenance Due Date Last Done Comments Hepatitis C Virus (HCV) Screening 1955 TdaP Immunization 1954 Cologuard 1999 Colonoscopy 1999 Colorectal Cancer Screening 1999 Immunochemical Fecal Occult Blood 1999 Pneumococcal Immunization (5 0+ years) (1 of 1 - PCV) 2004 Zoster Immunization (1 of 2) 2004 SARS-COV-2 Immunization (3 - season) 2024 01/09/2021, 12/19/2020 Influenza Immunization (#1) 2025 Respiratory Syncytial Virus (RSV) Immunization (Adult) (1 - 1-dose 75+ series) 2029 Hepatitis B Immunization Aged Out No longer eligible based on patient's age to complete this topic Human Papillomavirus (HPV) Immunization Aged Out No longer eligible b ased on patient's age to complete this topic Meningococcal Immunization (ACWY) Aged Out No longer eligible b ased on patient's age to complete this topic Rotavirus Immunization Aged Out No lo nger eligible based on patient's age to complete this topic
== END 2025-07-15 13:08 | disposition home or self-care (01) ==
LOC: CHSIMG 13:09
PROVIDERS: PCP Family Medicine; Visit Provider Family Medicine
DX: Z12.31 Encounter for screening mammogram for malignant neoplasm of breast (principal)
CPT/HCPCS: 77063; 77067

== ENCOUNTER 2025-10-02 07:31 | Outpatient (CLI) | payer MEDICARE, OTHER, SELFPAY ==
[2025-10-02 08:31] LABS: Alanine Aminotransferase 18 U/L (6-35); Albumin Level 3.9 g/dL (3.5-5.1); Alkaline Phosphatase 56 U/L (38-126); Anion Gap 3 mmol/L (4-12); Aspartate Amino Transferase 28 U/L (14-36); Bilirubin,Total 0.4 mg/dL (0.2-1.3); Blood Urea Nitrogen 19 mg/dL (7-17); Calcium 9.1 mg/dL (8.4-10.2); Carbon Dioxide 30 mmol/L (22-30); Chloride 104 mmol/L (98-107); Cholesterol 138 mg/dL (0-200); Estimated Glomerular Filt Rate > 60; Glucose 101 mg/dL (65-110); HDL Direct 59 mg/dL; Potassium 3.9 mmol/L (3.4-5.0); Sodium 137 mmol/L (137-145); Total Protein 6.7 g/dL (6.3-8.2); Triglycerides 84 mg/dL (<150)
[2025-10-02 15:00] LABS: Hemoglobin A1C 6.0 % (<5.7)
== END 2025-10-02 07:32 | disposition home or self-care (01) ==
PROVIDERS: PCP Family Medicine; Visit Provider Family Medicine
DX: I10 Essential (primary) hypertension (principal); E78.00 Pure hypercholesterolemia, unspecified; R73.09 Other abnormal glucose
CPT/HCPCS: 36415; 80053; 80061; 83036